=== PATIENT | female | born 1985 | race Caucasian/White ===

== ENCOUNTER 2022-05-14 12:00 | Emergency (ER) | payer BC ==
[~2022-05-14] VITALS: Ht 162.6 cm; Wt 79.4 kg
[2022-05-14 12:05] VITALS: BP_SYST 157
[2022-05-14] MEDS ORDERED: KETOROLAC TROMETHAMINE 60 MG/2 ML VIAL IM ONE (12:15)
[2022-05-14] MEDS ORDERED: HYDROcodone/ACETAMIN 10-325 MG TAB PO ONE (12:15)
[2022-05-14] MEDS ORDERED: MORPHINE 4 MG INJ. 4 MG/ML VIAL IM ONE ×2 (12:30→14:30)
[2022-05-14] MEDS ORDERED: LIDOCAINE PATCH 5% 1 EA TP SCH (14:15)
[2022-05-14] MEDS ORDERED: HYDR-3917 PO (14:25)
[2022-05-14 15:26] VITALS: BP_SYST 138
== END 2022-05-14 15:03 | disposition home or self-care (01) ==
LOC: SED 12:00
DX: M54.31 Sciatica, right side (principal); M54.50 Low back pain, unspecified; M79.651 Pain in right thigh; Z79.899 Other long term (current) drug therapy
CPT/HCPCS: 99284; 72100; 96372; J2270; J1885